=== PATIENT | male | born 1955 | race American Indian/Alaskan Native ===

== ENCOUNTER 2017-01-03 08:04 | Outpatient (CLI) | payer MEDICARE ==
--- NOTE | 2017-01-03 10:01 | Cat Scan Report ---
CT LUMBAR SPINE WITHOUT CONTRAST INDICATION: Low back pain, sciatica. COMPARISON: 2009 lumbar spine imaging. FINDINGS: Noncontrast axial, sagittal and coronal lumbar spine CT reconstructions demonstrate approximately 3 mm anterolisthesis of L3 over L4. Normal remainder vertebral body stature and alignment. Mild L3 and L4 degenerative spurring. Severe L3-L4 disc narrowing with vacuum phenomenon. Mild L2-L3 disc narrowing with vacuum phenomenon. Conus medullaris may terminate behind L1. Few atherosclerotic aortoiliac calcifications. An indeterminate left renal lesion medially possible, axial image 9, series 2. Intact SI joints. On the obtained axial images: T12-L1 and L1-L2 appear within normal limits. AP thecal sac caliber at L1-L2 is approximately 1 cm. L2-L3 demonstrates mild diffuse disc bulge with AP thecal sac caliber of 0.7 cm, axial image 72, series 2. Bilateral neural foraminal narrowing/undercutting may also be present though without definite exiting nerve root compression. Preserved posterior epidural fat pad. Left facet degenerative changes. L3-L4 demonstrates diffuse disc/osteophyte complex with AP thecal sac caliber of 0.7 cm. Bilateral neural foraminal narrowing may approach the exiting nerve roots. Bilateral facet degenerative changes seen. L4-L5 demonstrates mild diffuse disc bulge. AP thecal sac caliber approximately 0.9 cm. Bilateral neural foraminal narrowing/undercutting noted. Bilateral facet arthropathy. L5-S1 demonstrates no significant abnormality. CONCLUSION: Multilevel lumbar spine degenerative changes again noted, as described. Please correlate with neurologic territorial involvement. Thank you for the opportunity to participate in this patient's care.
== END 2017-01-03 08:05 | disposition home or self-care (01) ==
LOC: CT 08:04
PROVIDERS: ATTEND Internal Medicine
DX: M47.896 Other spondylosis, lumbar region (principal); M25.78 Osteophyte, vertebrae; M12.88 Other specific arthropathies, not elsewhere classified, other specified site; I70.0 Atherosclerosis of aorta
CPT/HCPCS: 72131